=== PATIENT | male | born 1950 | race Caucasian/White ===

== ENCOUNTER 2020-02-15 11:58 | Day surgery (SDC) | payer MEDICARE, OTHER, SELFPAY ==
[2020-02-10 13:52] VITALS: BMI 29.5
[2020-02-15 13:18] VITALS: BP 174/109; PULSE 67; RESP 18; TEMP 36.6; O2SAT 97
[2020-02-15 13:18] LABS: Coronavirus 19 IgG Antibody Negative (Negative); Coronavirus 19 IgM Antibody Negative (Negative)
--- NOTE | 2020-02-15 13:48 | HMH.ANESCL ---
[facility] Anesthesia Checklist - Patient Identification Patient Identification: Arm Band, Verbal (Name & ) - Structural Data Admitted From: Home Planned Operative Procedure/s: egd Consent for Planned Operative Procedure(s) Verified: Yes Verified Documents: History and Physical - NPO Status Verified Time NPO: 00:00 - Chart Verification Results Verified: CBC, BMP - Additional verifications Patient : No Anesthesia Reactions: No Hx Blood Transfusions: No Blood Transfusion Reaction: No Cephalosporin Allergy: No Previous Colonoscopy: No - Cardiovascular Assessment Heart Sounds: S1 & S2 Pulse Strength: Baseline Pulse Rhythm: Regular - Airway Assessment C-Spine Mobility Assessed: Yes TMJ Mobility Assessed: No Dentition: Good Dentition - Neurological Assessment Level of Consciousness: Awake, Alert, Appropriate Hx Seizures: No Numbness or tingling in extremities: No - Anesthesia Plan Anesthesia Risk discussed: Yes Anesthesia Plan: Verified ASA Class: II Anesthesia Type: MAC [facility] History I have reviewed the patient's past medical history: Yes Medical History: Reports:: Hyperlipidemia, Hypertension Denies:: Cancer, Diabetes Mellitus Type 1, Diabetes Mellitus Type 2, Internal Pacemaker, MRSA, Seizures *Have you ever received a pneumonia vaccine?: Yes *Have you received a flu vaccine this season?: No Anesthesia experience/problems:: none Laterality Cases: Bilateral: Tonsillectomy Other Surgeries: No: Pacemaker Amputation: No Fractures: No - *Social History Last grade of school completed: Advanced degree Smoking Status: Never smoker Alcohol Intake: current Alcohol Intake Frequency:: a few times a month Substance Use Type: other *Occupational Status:: employed Housing: house Household Members: spouse *Travel in the last 8 weeks: None Family Hx:: Other
[2020-02-15 14:36] VITALS: O2SAT 97
--- NOTE | 2020-02-15 14:54 | HMH.PROC ---
[facility] Procedure Note Procedure Note:: Upper Endoscopy Procedure Report: Esophagogastroduodenoscopy with cold biopsies (NBI directed) Endoscopost: Luis Angel Brown II, MD Referring Physician: Duc Pereyra MD Date of Procedure: February 15, 2020 Equipment: Olympus GIF 180 standard upper endoscope Sedation: MAC sedation Indications: Mr. Apodaca is a 69-year-old gentleman who is here for surveillance upper endoscopy. 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 He did undergo radiofrequency ablation in January 2017, June 2017 and January 2018. His last EGD in July 2018 showed some remaining short segment Wing's esophagus and radiofrequency ablation was performed. Biopsies at that time had originally shown indeterminate for dysplasia but further review by second pathologist did not show dysplasia. The patient is on omeprazole. He reports no GERD, heartburn, reflux or dysphagia. Procedure: Prior to the procedure, a history and physical exam was performed, and patient's medications and allergies were reviewed. The risks, benefits and alternatives of the sedation and procedure were discussed with the patient. All questions were answered and informed consent was obtained. The patient was brought to the procedure room. Patient identification and proposed procedure were verified by the physician and the nurse. The patient was placed in a left lateral decubitus position and the scope was passed under direct vision. Throughout the procedure, the patient's blood pressure, pulse, and oxygen saturations were monitored continuously. The upper GI endoscopy was accomplished without difficulty. The patient tolerated the procedure well. Findings: The scope was passed directly into the upper esophagus and advanced to the third portion of the duodenum. The post bulbar duodenum and duodenal bulb were normal with normal mucosa and conniventes. The scope was withdrawn through a normal duodenal bulb and pylorus into the stomach. There was mild reactive gastropathy of the antrum but the remainder of the antrum, body and fundus of the stomach were grossly normal. Upon retroflexion there was a 2 cm hiatal hernia. 2 biopsies were taken in the antrum and along the lesser curvature for histology to rule out gastritis and/or H pylori. The scope was then withdrawn into the esophagus. There appeared to be minimal but some remaining Wing's tongues (1 to 2 cm). Narrowband imaging was utilized and there were 2 areas at 12:00 and 6:00 that appeared to have some darker glandular mucosa that was biopsied to rule out dysplasia. These were labeled Wing's #1 (6:00) and Wing's #2 (12:00) and the specimens were sent for histology. There was no evidence of reflux esophagitis or stricturing. The remainder of the esophagus was normal. Impression: 1. 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 As long as there is no further dysplasia, I would continue surveillance at a two-year interval. I would continue PPI therapy as maintenance for complicated GERD/Wing's.
[2020-02-15 14:58] VITALS: BP 118/73; PULSE 64; RESP 12; TEMP 36.2; O2SAT 95
[2020-02-15 15:08] VITALS: BP 118/73; PULSE 61; RESP 16; O2SAT 94
[2020-02-15 15:18] VITALS: BP 128/89; BP 133/80; PULSE 68; PULSE 69; RESP 16; TEMP 36.2; O2SAT 97
== END 2020-02-15 15:26 | disposition home or self-care (01) ==
LOC: OUTP 12:04
PROVIDERS: PCP Internal Medicine; Visit Provider Internal Medicine Gastroenterology
PROC: 0DJ08ZZ Inspection of Upper Intestinal Tract, Via Natural or Artificial Opening Endoscopic (ICD-10-PCS; CPT 43235; principal; 2020-02-15 14:00)
DX: K22.710 Barrett's esophagus with low grade dysplasia (principal); Z87.19 Personal history of other diseases of the digestive system; E78.5 Hyperlipidemia, unspecified; I10 Essential (primary) hypertension; K21.9 Gastro-esophageal reflux disease without esophagitis; Z79.899 Other long term (current) drug therapy; Z90.89 Acquired absence of other organs
CPT/HCPCS: 43239; 86328; 88305